=== PATIENT | male | born 1985 | race Caucasian/White ===

== ENCOUNTER 2018-01-16 09:53 | Emergency (ER) | payer OTHER, SELFPAY ==
[2018-01-16 09:54] VITALS: BP 91/65; PULSE 83; RESP 16; TEMP 36.7; O2SAT 99; BMI 22.7
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
== END 2018-01-16 12:08 | disposition home or self-care (01) ==
PROVIDERS: Emergency Provider Emergency Medicine
DX: S39.012A Strain of muscle, fascia and tendon of lower back, initial encounter (principal); S29.011A Strain of muscle and tendon of front wall of thorax, initial encounter; S80.212A Abrasion, left knee, initial encounter; S80.211A Abrasion, right knee, initial encounter; S50.312A Abrasion of left elbow, initial encounter; S30.810A Abrasion of lower back and pelvis, initial encounter; S20.412A Abrasion of left back wall of thorax, initial encounter; V59.88XA Occupant (driver) (passenger) of pick-up truck or van injured in other specified transport accidents, initial encounter; Y92.410 Unspecified street and highway as the place of occurrence of the external cause; Y93.89 Activity, other specified
CPT/HCPCS: 71046; 72100; 99282

== ENCOUNTER 2020-07-07 18:53 | Emergency (ER) | payer OTHER, SELFPAY ==
[2020-07-07 18:55] VITALS: BP 139/89; PULSE 98; RESP 16; TEMP 36.4; O2SAT 98; BMI 22.7
--- NOTE | 2020-07-07 19:31 | ED.VIS.GEN ---
History of Present Illness Chief Complaint: Laceration Past Medical History - Allergies and Home Meds Allergies/Adverse Reactions: Allergies No Known Allergies Allergy (Verified 07/07/20 18:54) Primary Care Physician: Care Physician,No Primary [Primary Care Provider] - Smoking Status: Unknown if ever smoked Physical Exam Vital Signs/Narrative: Vital Signs Temp Pulse Resp BP Pulse Ox 07/07/20 18:55 97.6 F L 98 16 139/89 H 98 ED Disposition - Plan for ED Patient: Disposition: Home or Assisted Living Diagnosis: Laceration of left hand Instructions: ED Laceration, Hand: All Closures Referrals: Irene Navarrete MD [STAFF PHYSICIAN] - 10 Day for suture removal
[2020-07-07] MEDS: Lidocaine 1% (20 ml mdv) 20 ML Vial INFILT (20:29)
[2020-07-07 20:32] VITALS: BP 128/60; PULSE 82; RESP 18; O2SAT 96
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
== END 2020-07-07 20:33 | disposition home or self-care (01) ==
LOC: ED 19:39
PROVIDERS: Emergency Provider Emergency Medicine
DX: S61.412A Laceration without foreign body of left hand, initial encounter (principal); X58.XXXA Exposure to other specified factors, initial encounter; Y93.89 Activity, other specified; Y92.9 Unspecified place or not applicable; Y99.9 Unspecified external cause status
CPT/HCPCS: 12001; 99284

== ENCOUNTER 2021-03-14 11:45 | Emergency (ER) | payer OTHER, SELFPAY ==
[2021-03-14 11:45] VITALS: BP 133/91; PULSE 95; RESP 18; TEMP 36.3; O2SAT 98; BMI 22.7
--- NOTE | 2021-03-14 12:01 | RAD_ITS ---
STUDY: X-RAY - RIGHT ANKLE REASON FOR EXAM: Right ankle pain, right ankle injury 03/11/2021. TECHNIQUE: 3 view(s) of the ankle. COMPARISON: None. FINDINGS: Normal visualized distal tibia and fibula. Normal medial and lateral malleoli. Normal tibiotalar articulation and ankle mortise. Normal visualized talus and calcaneus. The visualized subtalar, talonavicular, calcaneocuboid and tarsal articulations are normal. There is mild soft tissue swelling overlying the lateral malleolus. RAD/Ankle min 3 Views IMPRESSION: Mild soft tissue swelling. No demonstrated fracture. Electronically Signed: Delfino Guthrie MD at 12:26 EDT Tel , Service support ,
--- NOTE | 2021-03-14 12:02 | EDS_ITS ---
HPI History of Present Illness Chief Complaint: Lower Extremity Injury Detail of Chief Complaint: Injury to right ankle that occurred 4 days ago Informant: patient Narrative Narrative: Patient presents to the emergency department with a ankle injury that occurred 4 days ago. Patient states that he was playing with his dogs when one of the dogs ran underneath his feet causing him to fall. Patient states that he has significant bruising now and is having hard time walking however he is able to stand and bear weight. Patient denies any other injuries. PFSH PFSH Medical History no medical history Home Medications NK 01/16/18 [History Last Taken Unknown] Allergy/AdvReac Type Severity Reaction Status Date / Time No Known Allergies Allergy Verified 03/14/21 11:46 Social History Smoking Status: Never smoker ROS ROS ED Constitutional Constitutional ED: Reports systems reviewed and no addt'l complaints, except as documented; Denies body ache(s), change in weight or chills Eyes Eyes: Denies acute decrease in peripheral vision, change in vision, double vision or loss of vision ENT ENT ED: Reports none; Denies ear pain, lip swelling, loss taste/smell, neck pain, otalgia or sore throat Cardiovascular Cardiovascular: Reports none; Denies abdominal pain, chest pain with activity, leg edema, lightheadedness, palpitations, rapid heart rate or syncope Respiratory/Chest Respiratory/Chest: Reports none; Denies change in mental status, dry cough, dyspnea, hemoptysis, shortness of breath at rest or shortness of breath with exertion Gastrointestinal Gastrointestinal: Reports none; Denies abdominal pain, change in stool character, diarrhea, hematemesis, hematochezia, melena, rectal bleeding or vomiting Genitourinary Genitourinary ED: Reports none; Denies abdominal discomfort, anuria, dysuria, g enital pain or polyuria Musculoskeletal Musculoskeletal: Reports none and other Details: Right ankle pain/injury ; Denies arthralgias, back pain, difficulty walking, extremity pain, muscle weakness or myalgias Integumentary Reports none; Denies abscess or rash Neurologic Neurologic: Reports none; Denies abnormal gait, confusion, focal weakness, frequent falls, headache(s), loss of vision, numbness, paresthesias, radicular pain, vertigo or weakness Psychiatric Psychiatric: Reports systems reviewed and no addt'l complaints, except as documented and none; Denies behavioral changes, confusion, difficulty conc entrating, hallucinations, suicidal ideation, tactile hallucinations or visual hallucinations Endocrine Endocrinology: Denies none, cold intolerance, excessive sweating, fatigue or heat intolerance Hematologic/Lymphatic Hematologic/Lymphatic: Reports none; Denies anemia, easy bleeding or easy bruising Allergic/Immunologic Allergic/Immunologic ED: Denies as per HPI, none, lip swelling, mouth swelling, throat swelling, tongue swelling or hives EXAM Physical Exam Const Vital Signs: 03/14/21 11:45 Temperature 97.4 F L Temperature Source Temporal Pulse Rate 95 Respiratory Rate 18 Blood Pressure 133/91 H Blood Pressure Mean 105 Pulse Ox 98 Oxygen Delivery Method Room Air Positive well nourished and well developed General Appearance ED: well developed and NAD HEENT Reports TM's clear and moist mucous membranes normocephalic and atraumatic; Negative for trauma or tenderness Tympanic Membrane ED: Yes TM's clear Eyes PERRL and EOMs intact bilaterally General Eye ED: Negative for pale conjunctiva or scleral icterus Neck no lymphadenopathy, supple and no JVD General: Negative for tenderness Chest Wall inspection of chest normal and palpation of chest normal Chest: Negative for tenderness Resp normal respiratory effort and clear to auscultation bilaterally Effort and Inspection: Negative for respiratory distress or pain with movement Auscultation: Negative for rhonchi, wheezes or diminished lung sounds Cardio regular rate, regular rhythm, S1 normal heart sound, S2 normal heart sound and no murmurs Peripheral Pulses: pulses 2+ throughout GI normal to inspection, nondistended, normoactive bowel sounds, soft to palpation, non-tender, non-distended and no masses Back/Spine no CVA tenderness and no thoracic nor lumbar tenderness Extremity Extremity Narrative: Evaluation of the right ankle reveals ecchymosis and bruising diffusely with tenderness over the lateral malleolus and ankle mortise. Patient has tenderness over the medial portion of the distal tibia. No pain at the proximal fibular head. No pain at the base of the fifth metatarsal. Neurovascular intact distally. General Extremety ED: Yes edema General Extremity: edema Neuro oriented x3, CN's II-XII intact bilaterally, no sensory deficits noted and gait normal Sensorium / Orientation: awake, alert, oriented to person, oriented to place and oriented to time Motor Exam: strength 5/5 throughout and strength abnormal Psych mental status grossly normal Skin no rashes or lesions noted and no wounds MDM MDM MDM Narrative Medical decision making narrative: X-rays of patient ankle obtained were negative for fracture on my interpretation. Patient will be given an air splint and he has his own crutches. He is to ice and elevate the extremity and follow- up with his primary care physician in 5 to 7 days. Radiography Diagnostic Testing: Three-view x-rays of right ankle obtained interpreted by myself as no acute fractures or dislocations. Official report from radiology pending. Discharge Plan Triage Chief Complaint: Lower Extremity Injury ED Provider: Nilam Nichols Dx/Rx/DC Orders Clinical Impression: Sprain of ankle, right Prescriptions: No Action NK RF: 0 Primary Care Provider: Care Physician,No Primary Referrals: Noe Muir MD [STAFF PHYSICIAN] - 1 Week Care Physician,No Primary [Primary Care Provider] - Disposition Disposition: Home, Self Care
[2021-03-14 12:37] VITALS: BP 99/73; PULSE 84
== END 2021-03-14 12:40 | disposition home or self-care (01) ==
PROVIDERS: Emergency Provider Emergency Medicine
DX: S93.401A Sprain of unspecified ligament of right ankle, initial encounter (principal); W54.1XXA Struck by dog, initial encounter; Y93.89 Activity, other specified; Y92.9 Unspecified place or not applicable; Y99.8 Other external cause status
CPT/HCPCS: 73610; 99282

== ENCOUNTER 2024-12-17 19:01 | Emergency (ER) | payer BC, SELFPAY ==
[2024-12-17 19:01] VITALS: BP 154/106; PULSE 65; RESP 18; TEMP 36.6; O2SAT 98; BMI 21.8
[2024-12-17] MEDS: HYDROcodone Bitartrate/Apap 5/325 Tablet PO (19:36)
--- NOTE | 2024-12-17 19:40 | RAD_ITS ---
PROCEDURE: RIGHT CLAVICLE 12/17/2024 REASON FOR EXAM: INJURY TECHNIQUE: Right clavicle radiographs COMPARISON: None. FINDINGS: Acute comminuted fracture of the right midclavicle with moderate displacement and overriding fracture fragments. Right AC and glenohumeral joints are intact with well preserved joint space. Imaged lung apices are clear. Grossly unremarkable soft tissues. RAD/Clavicle IMPRESSION: Acute comminuted displaced/overriding right mid clavicle fracture. Reading Location: [id number]
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
[2024-12-17 20:19] VITALS: BP 136/99; PULSE 72; RESP 18; TEMP 36.6; O2SAT 100
== END 2024-12-17 20:24 | disposition home or self-care (01) ==
PROVIDERS: Emergency Provider Emergency Medicine; Referring Provider Emergency Medicine; Visit Provider Emergency Medicine
DX: S42.021A Displaced fracture of shaft of right clavicle, initial encounter for closed fracture (principal); V89.2XXA Person injured in unspecified motor-vehicle accident, traffic, initial encounter
CPT/HCPCS: 73000; 99283

== ENCOUNTER 2024-12-29 10:52 | Day surgery (SDC) | payer BC, SELFPAY ==
[2024-12-29] VITALS (10 sets, daily range): BP systolic 117–138; BP diastolic 84–91; PULSE 75–97; RESP 14–16; TEMP 36.2–36.6; O2SAT 97–100; BMI 21.0
[2024-12-29] MEDS: Lactated Ringers 1,000 ML 15 ML IV (11:12)
--- NOTE | 2024-12-29 11:34 | PCM.PRE.AN2 ---
ASA Classification* ASA Classification ASA Classification: 1 Assessment & Plan Anesthesia* Anesthesia Assessment Anesthesia Assessment: Discussed sedation and/or anesthesia options, risks, benefits, and alternatives with patient/parents/legal guardian/POA. Questions invited. The patient/parents/legal guardian/POA seems to understand and agrees to proceed with anesthesia plan. Reviewed the physical assessment, medical history, allergy history and patient home medications list prior to surgery/procedure/anesthetic and documented any changes. Performed airway and anesthesia risk assessments. Anesthesia Type Anesthesia Type: General and Block (Patient consented to interscalene block for pain control.) History Source History Obtained from:: Patient and Chart Anesthesia Focused Assessment* Temperature: 97.8 F Pulse Rate: 97 Blood Pressure: 138/87 Respiratory Rate: 16 Pulse Ox: 100 Oxygen Delivery Method: Room Air Airway Assessment Mouth opens: >3 cm Mallampati Score: I Teeth Condition: Caps/Crowns (Right lower molar is crowned. It is tight.) and Missing (1 missing left upper molar.) Neck Range of motion (ROM): Full ROM Labs Anesthesia Preop lab: CBC CHEMISTRY COAG Pre-Assessment Diagnosis/Proposed Procedure Planned Operative Procedure(s): (R) Right Clavicle open reduction internal fixation Anesthesia History Anesthesia History - correction officer: Anesthesia History - correction officer Hx Hospitalization No 12/25/24 08:05 Any Problems With Anesthesia No 12/25/24 08:05 Cholinesterase deficiency No 12/25/24 08:05 You/Your Family Experience No 12/25/24 08:05 fever (hyperthermia) with Relationship Recent Exposure to Contagious No 12/29/24 11:04 Disease Does patient have nerve No 12/25/24 08:05 stimulator Patient instructed to have device shut off --Does patient have Pacemaker No 12/29/24 11:04 or ICD? When Was Last Pacemaker Check QUESTION #4 FULL TEXT: You/Your Family Experience fever (hyperthermia) with Anesthesia Last Oral Intake Last Oral intake: Last Oral Intake NPO since 19:00 12/29/24 11:04 Meds taken in AM with sips of No 12/29/24 11:04 water? Meds patient instructed to take am of surgery PONV PONV - correction officer: PONV - correction officer Female No 12/25/24 08:05 HX of Motion Sickness No 12/25/24 08:05 HX of N/V After Surgery No 12/25/24 08:05 Non-Smoker No 12/25/24 08:05 Duration of Surgery greater No 12/25/24 08:05 than 60 minutes Number of Risk Factors PONV Score Height & Weight Height & Weight: Anesthesia: Height & Weight Height 5 ft 7 in 12/29/24 11:04 Weight: 61 kg 12/29/24 11:04 Body Mass Index (BMI) 21.0 12/29/24 11:04 Respiratory Assessment Respiratory Assessment - correction officer: Respiratory Tract Infection Hx - correction officer Hx Respiratory Tract Infection No 12/25/24 08:05 STOP Sleep Apnea STOP Sleep Apnea - correction officer: STOP Sleep Apnea - correction officer Hx Hypertension No 12/25/24 08:05 Hx Sleep Apnea No 12/25/24 08:05 CPAP BIPAP Do you snore loudly (louder No 12/25/24 08:05 than talking or can be heard Do you often feel tired/ No 12/25/24 08:05 fatigued/ sleepy during daytime? Has anyone observed you stop No 12/25/24 08:05 breathing during sleep? STOP Results Negative 12/25/24 08:05 QUESTION #5 FULL TEXT : Do you snore loudly (louder than talking or can be heard through closed doors)? Tobacco Use History Tobacco Use History - correction officer: Tobacco Use History - correction officer Tobacco Use Smoking Status Former smoker 12/25/24 08:05 Hx Tobacco Use No 12/25/24 08:05 Years Smoking Packs Smoked per Day Smoking Cessation Date was No - quit smoking greater 12/25/24 08:05 within the last 15 years than 15 years ago Hx Smoking Cessation Date Hx Smoking Cessation Counseling Hematologic Medial History Hematologic Hx - correction officer: Hematologic Medical Hx - vascular surgery physician Hx of Blood Transfusion No 12/25/24 08:05 Hx of Transfusion in last 3 No 12/25/24 08:05 Months Date of Last Transfusion (if within last 3 months) Ever experience any problems No 12/25/24 08:05 with transfusion(s)? Specify any problems Hx of Preganancy in last 3 N/A 12/25/24 08:05 Months Nurse Filling Out Transfusion VLEHBRUCETON 12/25/24 08:05 & Questions: Date: 12/25/24 12/25/24 08:05 Time: 08:10 12/25/24 08:05 Patient unable to answer at this time (ie. confused, unrespo /Reproduction History /Reproductive History - correction officer: /Reproductive Hx- correction officer Hx Now Gestational Age (in weeks): EDC: Hx Hx Para Hx Section SAB Active Medications Active Medications: Current Medications Generic Name Dose Route Start Last Admin Trade Name Freq PRN Reason Stop Dose Admin Cefazolin Sodium 2 gm/ Sodium 110 mls @ 200 mls/hr 12/29/24 12:30 Chloride IV 12/29/24 13:02 INTRAOP ONE Lactated Ringer's 1,000 mls @ 15 mls/hr 12/29/24 11:00 12/29/24 11:12 IV 15 mls/hr .Q48H VILMA Administration PFSH Medical History Bruise Wears glasses Wears contact lenses Former smoker Broken arm Home Medications ?Medication ?Instructions ?Recorded ?Last Taken ?Type hydrocodone-acetaminophen 5-325mg 1 tab PO Q6H PRN PRN Pain 3 days 12/17/24 Unknown Rx 5mg-325mg #12 TABLETS ibuprofen 600 mg tablet 600 mg PO Q6H PRN PRN pain #20 12/17/24 Unknown Rx TABLETS Allergy/AdvReac Type Severity Reaction Status Date / Time No Known Allergies Allergy Verified 12/25/24 08:05 Surgical History (Updated 12/29/24 @ 11:[address] Ozzy Ignacio MD) Right radial fracture Social History Smoking Status: Former smoker Review of Systems (Anesthesia) ROS Narrative System reviewed and no additional complaints, except as documented.
[2024-12-29] MEDS: Midazolam 2 MG/2 ML Syringe IV (12:08)
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
[2024-12-29] MEDS: Cefazolin 1 GM/5 ML Vial 2 GM IV (12:32)
[2024-12-29] MEDS: Lactated Ringers 1,000 ML 1000 ML IV (12:32)
[2024-12-29] MEDS: Lidocaine 2% (5ml sdv) 5 ML VIAL.MPF 6 ML IV (12:37)
--- NOTE | 2024-12-29 13:03 | RAD_ITS ---
PROCEDURE: CLAVICLE 12/29/2024 REASON FOR EXAM: RT CLAVICLE ORIF TECHNIQUE: CLAVICLE FINDINGS: Intraoperative fluoroscopy of a right clavicle ORIF was performed. 6.0 seconds of fluoroscopic time. 0.65 mGy. See procedure report for full details. RAD/Clavicle IMPRESSION: As above. Reading Location: [id number]
--- NOTE | 2024-12-29 13:54 | PCM.OPRPT ---
Problems Associated Problem List Diagnoses (1) Closed fracture of right clavicle: Procedures Musculoskeletal 20xxx-29xxx: Other Procedure See Report Operative Report (Standard) Operative Information Date of Procedure: 12/29/24 Pre-Operative Diagnosis: R clavicle fracture Post-Operative Diagnosis: same Surgery/Procedure Performed: R clavicle ORIF micro photographer: Yes Director Of Intelligence: amalia Tasks completed by engineer first assistant: Retracting Additional educational/development assistant?: No Type of Anesthesia: Block,Regional and General RN Documented Start/Stop Times: Operation Date: 12/29/24 12:30 Case Time Into Pre-Op 12/29/24 10:55 Anesthesia Start 12/29/24 12:32 Into Room 12/29/24 12:32 Procedure Start 12/29/24 13:03 Procedure Start Time: 13:03 Procedure Stop Time: 13:53 Select all DRAINS/GRAFTS/IMPLANTS that apply: Implanted device Implanted device details: Synthes clavicle plate anatomic contoured locking 2.7mm plate R side Estimated Blood Loss: 20 Specimen collected: No Description of surgery: Patient brought to the operating room theater. Placed supine on the beachchair positioner. General anesthesia induced. All bony prominences padded. SCDs on the legs. Arm positioner to the patient's right side bed turned 90 degrees. Upper extremity prepped and draped in the usual sterile fashion with chlorhexidine-based prep solution allowing over 3 minutes drying time prior to draping. 2 g IV Ancef administered prior to the start of the case. Preoperative timeout performed to confirm the site patient and the surgery. Began by making a longitudinal incision over the anterior superior aspect of the right clavicle centered over the fracture site. Carried the dissection down through skin and subcutaneous tissue achieved meticulous hemostasis. Incised through the platysma layer down to the superior aspect of the clavicle. Achieved meticulous hemostasis. Fracture site identified. Cleared interposed perisoteum and hematoma / early callus. There was a small anteriorly based butterfly fragment excised this but used it to steaming cabinet tender the length. This was a short oblique fracture bending wedge type. I fully dissected the superior aspect of the clavicle aligned up the fracture site use fracture clamps alligator style clamps to reduce the fracture with direct manipulation. I selected a medium length Synthes precontoured 2.7 mm locking clavicle plate places superiorly on the bone and clamped in place. Made sure not over the ACJ. I took intraoperative radiographs to ensure the reduction was out to length and the plate appropriately placed. I then placed one 2.7 mm fully threaded cortical screw on either side of fracture site to secure the plate down to the bone and compressed this further. I then placed 3 fully threaded locking screws additionally on either side of the fracture for 8 screws total. I took final radiographs. This appeared well placed plate fracture appropriately reduced and screws of appropriate length and number. Final radiographs taken and saved onto the system. Wound thoroughly irrigated meticulous hemostasis achieved. Fascial layer closed with #1 Vicryl suture subcutaneous tissue with 2-0 Vicryl suture and 3-0 Monocryl. Skin cleaned with wet and dry dressing followed by application of Steri-Strips and silver Mepilex dressing with sling for the upper extremity. Patient woken up from the general anesthetic transferred off the operating room table and taken to postanesthetic care unit in stable condition. All sponge needle instrument counts were correct no complications plan to the patient discharged home according to day surgery criteria follow-up in the office within 2 weeks time. CPT 69878 Surgical Findings: as above. Complications Complications: No Admit VTE Documentation VTE Present on Admission: Yes VTE Mechan Device Prophylaxis: None VTE Pharm Prophylaxis ordered?: No Reason prophylaxis not ordered: Treatment Not Indicated
--- NOTE | 2024-12-29 14:02 | EX.PCM.DISCH ---
Discharge Instructions Diet Discharge Diet: No restrictions Activity Discharge Activity: Return to Normal Activity Weight Bearing Status: No weight bearing Lifting Restrictions: no lifting over 1 pound, hand wrist elbow rom gently 4x/day Additional Activity Instructions:: sling for comfort, ok to remove sling at rest Dressing / Incision Call your doctor if your incision/area has: Continuous Slow Oozing, Sudden Increased Bleeding, Increased Pain/ Swelling, Increased Redness, Foul Smelling Discharge and Swelling at the incision site Call your doctor if you observe: Fever of 101 or Higher, Coldness, Increased Pain and Numbness or Tingling Change Dressing in: leave in place till F/U Cleanse incision/area with: Do not get Incision Wet Follow Up Care Please Follow Up With: Naveed Vogel MD When: within 2 weeks Test Results: Test results from this visit will be discussed in further detail at your follow-up appointment, if applicable. Discharge Plan Admission Attending Provider: Naveed Vogel Primary Care Provider: Care Physician,No Primary Instructions Patient Instructions: Clavicle Fx ORIF Print Language: [place] Discharge Orders/Prescriptions Prescriptions: New oxycodone-acetaminophen [Endocet] 5-325 mg tablet 1 tab PO Q4H MDD 6 PRN (Reason: pain) 5 Days Qty: 20 0RF No Action hydrocodone-acetaminophen 5-325 mg tablet 1 tab PO Q6H PRN PRN (Reason: Pain) 3 Days Qty: 12 0RF ibuprofen 600 mg tablet 600 mg PO Q6H PRN PRN (Reason: pain) Qty: 20 0RF Referrals / Follow Up: Naveed Vogel MD [Med Staff - Active Staff] - Care Physician,No Primary [Primary Care Provider] - Disposition Disposition (needs filled in before D/C Order can be placed): Home, Self Care
--- NOTE | 2024-12-29 14:09 | PCM.POST.ANE ---
Anesthesia: Postop Eval I Current Vital Signs Temperature: 97.1 F Pulse Rate: 85 Blood Pressure: 117/85 Respiratory Rate: 16 Pulse Ox: 99 Assessment Airway patent: Yes Spontaneous unlabored respirations: Yes nausea: No Vomiting: No Anesthesia Complication: No Fluid Hydration Crystalloid volume administer (ml): 1,000 Total IV fluid infused: 1,000 Progress Note Anesthesia document: Postop Eval 1 completed: Yes
[2024-12-29] MEDS: HYDROcodone Bitartrate/Apap 5/325 Tablet PO (15:06)
== END 2024-12-29 15:36 | disposition home or self-care (01) ==
LOC: SDC 10:52 → AC 10:54
PROVIDERS: Referring Provider Orthopaedic Surgery Sports Medicine; Visit Provider Orthopaedic Surgery Sports Medicine
PROC: (CPT 23515; principal; 2024-12-29 12:10)
DX: S42.001A Fracture of unspecified part of right clavicle, initial encounter for closed fracture (principal); V28.49XA Other motorcycle driver injured in noncollision transport accident in traffic accident, initial encounter; Z87.891 Personal history of nicotine dependence
CPT/HCPCS: 23515; 00450; 64415; 73000; 76000; C1713; J2405

== ENCOUNTER 2025-04-01 09:00 | Outpatient (RCR) | payer BC, SELFPAY ==
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
--- NOTE | 2025-04-01 09:19 | HP.PTDCSUM ---
Discharge Summary D/C summary: It has been my pleasure to treat CARLOTA MASON referred by Dr. Naveed Vogel MD, with the diagnosis of FRACTURE OF UNSPECIFIED PART OF RIGHT CLAVICLE for a total of 14 visit(s). Discharge Date: Please see the following information for a summary of their discharge status. Subjective Subjective: Doing well Return andrew work Pain Right Shoulder: Pain Intensity (Out of 10): 0 Overall Improvement % Improvement: 90 Objective Objective/Function: POSTURE: mild forward posture NEURO: denies paresthesia/tingling , PALAPTION: unremarkable AROM: shoulder flexion ~ 160 degrees ,abduction ~160 degrees ,ER 90M degrees ,IR T9 MMT: ( peak force) infraspinatus 25.,[id number],anterior deltoid 30.2 ,lateral deltoid 22.1 ,SUPRA 20.9 Goals Goal 1:: Patient to be I with HEP for s/p clavicle ORIF Goal Progress: Goal Met Goal 2:: Patient to improve AROM shoulder flexion /abduction by 170 degrees to improve [place] activities and job demands( new goal) Goal Progress: Goal Met Goal 3:: Patient to improve peak force RTC/deltoid by 5-10# strength to improve ADLS and housework tasks( new goal) Goal Progress: Goal Met Goal 4:: Patient to improve quick dash by 5 points to improve QOL and function( new goal) Goal Progress: Goal Met Goal 5:: Patient to demonstrate 70 % improvement with improved function job and housework Goal Progress: Goal Met Plan Plan: D/C D/C Information d/c sentence: If there are questions or concerns regarding this patient's physical therapy, please feel free to call me at [phone]. Thank you for the referral of this patient. Sincerely, Jose [facility], PT, Cert MDT, OCS Balance/Gait/Functional tests Balance/Special Test Scores Quick DASH Score: 20.4525 Improvement % Improvement: 90
== END 2025-04-01 19:00 | disposition home or self-care (01) ==
LOC: PT 09:00
PROVIDERS: Referring Provider Orthopaedic Surgery Sports Medicine; Visit Provider Orthopaedic Surgery Sports Medicine
DX: S42.001D Fracture of unspecified part of right clavicle, subsequent encounter for fracture with routine healing (principal)
CPT/HCPCS: 97110; 97161; 97530